=== PATIENT | male | born 1975 | race Two or more races ===

== ENCOUNTER 2020-06-14 23:22 | Emergency (ER) | payer SELFPAY ==
[~2020-06-14] VITALS: Ht 160 cm; Wt 68.1 kg
--- NOTE | 2020-06-15 00:16 | PHYS DOC ---
General Adult EDM: Chief Complaint: ABDOMINAL PAIN HPI: HPI: Patient is a 44 year old male who presents with epigastric abdominal pain for 6 months. Patient reports that this is been intermittent. He will have days where he would have it at all and other days he will have it all day. He is associated with some nausea without vomiting, no diarrhea, melena or hematochezia. He reports the pain is achy, nonradiating and intermittent. The pain he has today has been present for at least 2 or 3 days. Patient also complains of some mild dysuria without any testicular involvement including swelling or pain. Patient denied any constipation, fever, chills or sweats cough change in smell or taste. Review of Systems: Review of Systems: Constitutional: Denies fever or chills. [] Eyes: Denies change in visual acuity. [] HENT: Denies nasal congestion or sore throat. [] Respiratory: Denies cough or shortness of breath. [] Cardiovascular: Denies chest pain or edema. [] GI: See HPI. [] : See HPI [] Musculoskeletal: Denies back pain or joint pain. [] Integument: Denies rash. [] Neurologic: Denies headache, focal weakness or sensory changes. [] Endocrine: Denies polyuria or polydipsia. [] Lymphatic: Denies swollen glands. [] Psychiatric: Denies depression or anxiety. [] Heart Score: Risk Factors: Risk Factors: DM, Current or recent (<one month) smoker, HTN, HLP, family history of CAD, obesity. Risk Scores: Score 0 - 3: 2.5% MACE over next 6 weeks - Discharge Home Score 4 - 6: 20.3% MACE over next 6 weeks - Admit for Clinical Observation Score 7 - 10: 72.7% MACE over next 6 weeks - Early Invasive Strategies Allergies: Allergies: Allergies Coded Allergies Type Severity Reaction Last Updated Verified No Known Drug Allergies 06/15/20 No Physical Exam: PE: Constitutional: Well developed, well nourished, no acute distress, non-toxic appearance. [] HENT: Normocephalic, atraumatic, bilateral external ears normal, oropharynx moist, no oral exudates, nose normal. [] Eyes: PERRLA, EOMI, conjunctiva normal, no discharge. [] Neck: Normal range of motion, no tenderness, supple, no stridor. [] Cardiovascular:Heart rate regular rhythm, no murmur [] Lungs & Thorax: Bilateral breath sounds clear to auscultation [] Abdomen: Soft, positive bowel sounds, no guarding, no rebound, negative Solano sign, tenderness in the epigastrium. Nondistended [] Skin: Warm, dry, no erythema, no rash. [] Back: No tenderness, CVA tenderness on the left greater than the right but also some iliolumbar muscle tenderness. [] Extremities: No tenderness, no cyanosis, no clubbing, ROM intact, no edema. [] Neurologic: Alert and oriented X 3, normal motor function, normal sensory function, no focal deficits noted. [] Psychologic: Affect normal, judgement normal, mood normal. [] EKG: EKG: Normal sinus rhythm, heart rate 75 bpm, normal intervals, normal axis, left atrial abnormality, abnormal ECG [] Radiology/Procedures: Radiology/Procedures: [] Course & Med Decision Making: Course & Med Decision Making Pertinent Labs and Imaging studies reviewed. (See chart for details) [id number]-patient was seen and reevaluated. Patient reports that his abdominal pain is now resolved with medications rendered here in the emergency department. I discussed with him reasons to return, treatment plan and need for follow-up. [] Dragon Disclaimer: Dragmarly Disclaimer: This electronic medical record was generated, in whole or in part, using a voice recognition dictation system. Departure Departure Impression: Primary Impression: Acute gastritis without hemorrhage Qualified Codes: K29.00 - Acute gastritis without bleeding Additional Impressions: Epigastric abdominal pain Hypokalemia Disposition: HOME, SELF-CARE Condition: IMPROVED Referrals: NO PCP (PCP) Patient Instructions: Abdominal Pain, Gastritis, Adult Additional Instructions: See the list of primary care providers for follow-up Scripts Omeprazole (OMEPRAZOLE) 40 Mg Capsule.dr 40 MG PO DAILY for 30 Days, #30 CAP Take 1/2-hour before the first meal the day Prov: IFTIKHAR PÉREZ MD 06/15/20 Justicifation of Admission Dx: Justifications for Admission: Justification of Admission Dx: N/A IFTIKHAR PÉREZ MD Jun 15, 2020 00:16
[2020-06-15] MEDS ORDERED: IV NORMAL SALINE 1000ML BAG 1,000 ML IV ONE (00:30)
[2020-06-15] MEDS ORDERED: MAG HYDROX/ALUMINUM HYD/SIMETH 30 ML ORAL.SUSP PO ONE (00:30)
[2020-06-15] MEDS ORDERED: METOCLOPRAMIDE HCL 10 MG/2 ML VIAL. IVP ONE (00:30)
[2020-06-15] MEDS ORDERED: FAMOTIDINE 20 MG TABLET. PO ONE (00:30)
[2020-06-15 00:55] LABS: BASO % 0 % (0-3); EOS % 0 % (0-3); HEMOGLOBIN 10.5 g/dL (13.0-17.5); LYMPH # 2.5 x10^3/uL (1.0-4.8); LYMPH % 29 % (24-48); MEAN CORPUSCULAR HEMOGLOBIN 30 pg (25-35); MEAN CORPUSCULAR HGB CONC 36 g/dL (31-37); MEAN CORPUSCULAR VOLUME 84 fL (79-100); MONO # 0.6 x10^3/uL (0.0-1.1); MONO % 7 % (0-9); NEUT # 5.4 x10^3/uL (1.8-7.7); NEUT % 64 % (31-73); PLATELET COUNT 517 x10^3/uL (140-400); RED BLOOD COUNT 3.45 x10^6/uL (4.30-5.70); RED CELL DISTRIBUTION WIDTH 12.7 % (11.5-14.5); WHITE BLOOD COUNT 8.5 x10^3/uL (4.0-11.0)
[2020-06-15 01:03] LABS: PROTHROMBIN TIME PATIENT 11.1 SEC (11.7-14.0)
[2020-06-15 01:11] LABS: ALBUMIN 1.7 g/dL (3.4-5.0); ALBUMIN/GLOBULIN RATIO 0.3 (1.0-1.7); CALCIUM 7.9 mg/dL (8.5-10.1); CREATININE 1.2 mg/dL (0.7-1.3); GFR 66.4; TOTAL BILIRUBIN 0.2 mg/dL (0.2-1.0); TOTAL PROTEIN 6.7 g/dL (6.4-8.2)
[2020-06-15 01:17] LABS: POTASSIUM 2.9 mmol/L (3.5-5.1)
[2020-06-15 01:41] LABS: BILIRUBIN,URINE NEGATIVE (NEG); CLARITY,URINE CLEAR; COLOR,URINE YELLOW; NITRITE,URINE NEGATIVE (NEG); PH,URINE 6.5 (<5.0-8.0); PROTEIN,URINE 100 mg/dL (NEG-TRACE); UROBILINOGEN,URINE 0.2 mg/dL (0.2 mg/dL)
[2020-06-15 01:50] LABS: BACTERIA,URINE 0 /HPF (0-FEW); RBC,URINE OCC /HPF (0-2); SQUAMOUS EPITHELIAL CELL,UR FEW /LPF
[2020-06-15 01:51] LABS: HYALINE CASTS, URINE FEW /HPF
[2020-06-15] MEDS ORDERED: POTASSIUM CHLORIDE 20 MEQ TABLET.ER. PO ONE (02:00)
[2020-06-15] MEDS ORDERED: OMEP40CA45 PO (02:05)
[2020-06-15 02:07] VITALS: BP 158/97
--- NOTE | 2020-06-15 14:28 | EKG ---
[facility] [address] [place] [address] Test Date: 2020-06-15 Test Time: 01:21:53 Pat Name: SAYRA HARLEY Department: Room: Gender: M Instructional Design Manager: : 1975 Requested By: IFTIKHAR PÉREZ Order Number: [id number] Reading MD: Lefty Mchugh MD Measurements Intervals [place] Rate: 75 P: -7 MT: 148 QRS: 49 QRSD: 100 T: 34 QT: 412 QTc: 463 Interpretive Statements SINUS RHYTHM Electronically Signed On 06-20-2020 13:57:40 CDT by Lefty Mchugh MD
== END 2020-06-15 02:23 | disposition home or self-care (01) ==
LOC: ER 23:22
DX: K29.00 Acute gastritis without bleeding (principal); R10.13 Epigastric pain; E87.6 Hypokalemia; R11.0 Nausea; R30.0 Dysuria
CPT/HCPCS: 36415; 80053; 81001; 83690; 84484; 85025; 85610; 93005; 96361; 96374; 99284; J2765; J7030

== ENCOUNTER 2021-01-31 21:30 | Emergency (ER) | payer SELFPAY ==
[~2021-01-31] VITALS: Ht 165.1 cm; Wt 63.6 kg
[~2021-01-31 21:30] MED LIST: OMEP40CA45 PO
[2021-01-31 22:19] LABS: BASO # 0.1 x10^3/uL (0.0-0.2); BASO % 1 % (0-3); EOS # 0.1 x10^3/uL (0.0-0.7); EOS % 1 % (0-3); HEMATOCRIT 28.3 % (39.0-53.0); HEMOGLOBIN 9.7 g/dL (13.0-17.5); LYMPH # 1.7 x10^3/uL (1.0-4.8); LYMPH % 21 % (24-48); MEAN CORPUSCULAR HEMOGLOBIN 30 pg (25-35); MEAN CORPUSCULAR HGB CONC 34 g/dL (31-37); MEAN CORPUSCULAR VOLUME 87 fL (79-100); MONO # 0.4 x10^3/uL (0.0-1.1); MONO % 5 % (0-9); NEUT # 5.7 x10^3/uL (1.8-7.7); NEUT % 72 % (31-73); PLATELET COUNT 472 x10^3/uL (140-400); RED BLOOD COUNT 3.26 x10^6/uL (4.30-5.70); RED CELL DISTRIBUTION WIDTH 14.1 % (11.5-14.5); WHITE BLOOD COUNT 7.9 x10^3/uL (4.0-11.0)
--- NOTE | 2021-01-31 22:31 | RAD ---
Single view chest dated 01/31/2021. No comparison available. CLINICAL INDICATION: Shortness of breath. FINDINGS: Single upright portable exam. Heart and mediastinal contours within normal limits. There is some patc hy and linear opacity at both lung bases, left greater than right. No consolidation or pleural effusi on. No pneumothorax. IMPRESSION: Patchy bibasilar opacity, likely atelectasis. Electronically signed by: Kenn Bauer MD (01/31/2021 10:28 PM) [facility]URENT
[2021-01-31 22:36] LABS: ALBUMIN 1.1 g/dL (3.4-5.0); ALBUMIN/GLOBULIN RATIO 0.3 (1.0-1.7); GFR 36.6; TOTAL BILIRUBIN 0.1 mg/dL (0.2-1.0); TOTAL PROTEIN 4.9 g/dL (6.4-8.2)
[2021-01-31 22:37] LABS: POTASSIUM 2.9 mmol/L (3.5-5.1)
[2021-01-31] MEDS ORDERED: POTASSIUM BICARB 20 MEQ EFFERVESCENT TABLET. PO ONE (22:45)
[2021-01-31] MEDS ORDERED: POTASSIUM CHLORIDE 20 MEQ TABLET.ER. PO ONE (22:45)
--- NOTE | 2021-01-31 23:10 | PHYS DOC ---
Past Medical History Past Medical History: Diabetes-Type II, Renal Failure Past Surgical History: No Surgical History Smoking Status: Never Smoker Alcohol Use: None General Adult EDM: Chief Complaint: LOWER EXTREMITY SWELLING HPI: HPI: Patient is a 45 year old year old male presents for evaluation of lower extremity swelling and abnormal labs. Patient states he takes medicine for diabetes and "kidneys" States he went to a clinic and had his blood work drawn-- creatine wa 1.6 and patient was told his kidneys are failing and clinic stated they could not see him anymore. Patient states he still produces urine. States swelling in his legs 6 months. SOB on and off x 3-5 months Review of Systems: Review of Systems: Review of systems: Constitutional symptoms- No fever, no chills. Eyes- No Discharge, No Visual Loss Respiratory symptoms- positive shortness of breath, No wheezing, No Dyspnea on Exertion Cardiovascular Systems; positive chest pain, No Palpitations, No syncope Gastrointestinal symptoms: NO abdominal pain, no nausea, no vomiting or diarrhea. Genitourinary symptoms: No dysuria. Musculoskeletal symptoms: No back pain No extremity pain. extremity swelling NEUROLOGICAL Symptoms: No headache, no generalized weakness; No focal Weakness Heart Score: C/O Chest Pain: N/A Risk Factors: Risk Factors: DM, Current or recent (<one month) smoker, HTN, HLP, family history of CAD, obesity. Risk Scores: Score 0 - 3: 2.5% MACE over next 6 weeks - Discharge Home Score 4 - 6: 20.3% MACE over next 6 weeks - Admit for Clinical Observation Score 7 - 10: 72.7% MACE over next 6 weeks - Early Invasive Strategies Current Medications: Current Medications Medications (Trade) Dose Ordered Sig/[facility] Start Time Stop Time Status Last Admin Dose Admin Potassium Bicarbonate (Potassium Effervescent Tablet) 40 meq 1X ONCE 01/31/21 22:45 01/31/21 22:46 DC 01/31/21 22:56 40 MEQ Potassium Chloride (Klor-Con) 40 meq 1X ONCE 01/31/21 22:45 01/31/21 22:46 DC 01/31/21 22:56 40 MEQ Allergies: Allergies: Allergies Coded Allergies Type Severity Reaction Last Updated Verified No Known Drug Allergies 06/15/20 No Physical Exam: PE: Constitutional: Well developed, well nourished, no acute distress, non-toxic yash earance. [] HENT: Normocephalic, atraumatic, bilateral external ears normal, oropharynx moist, no oral exudates, nose normal. [] Eyes: PERRLA, EOMI, conjunctiva normal, no discharge. [] Neck: Normal range of motion, no tenderness, supple, no stridor. [] Cardiovascular:Heart rate regular rhythm, no murmur [] Lungs & Thorax: Bilateral breath sounds clear to auscultation [] Abdomen: Bowel sounds normal, soft, no tenderness, no masses, no pulsatile masses. [] Skin: Warm, dry, no erythema, no rash. [] Back: No tenderness, no CVA tenderness. [] Extremities: No tenderness, no cyanosis, no clubbing, ROM intact, edema bilateral lower extremities [] Neurologic: Alert and oriented X 3, normal motor function, normal sensory function, no focal deficits noted. [] Psychologic: Affect normal, judgement normal, mood normal. [] Current Patient Data: Labs: Laboratory Tests Test 01/31/21 22:09 White Blood Count 7.9 x10^3/uL (4.0-11.0) Red Blood Count 3.26 x10^6/uL (4.30-5.70) L Hemoglobin 9.7 g/dL (13.0-17.5) L Hematocrit 28.3 % (39.0-53.0) L Mean Corpuscular Volume 87 fL (79-100) Mean Corpuscular Hemoglobin 30 pg (25-35) Mean Corpuscular Hemoglobin Concent 34 g/dL (31-37) Red Cell Distribution Width 14.1 % (11.5-14.5) Platelet Count 472 x10^3/uL (140-400) H Neutrophils (%) (Auto) 72 % (31-73) Lymphocytes (%) (Auto) 21 % (24-48) L Monocytes (%) (Auto) 5 % (0-9) Eosinophils (%) (Auto) 1 % (0-3) Basophils (%) (Auto) 1 % (0-3) Neutrophils # (Auto) 5.7 x10^3/uL (1.8-7.7) Lymphocytes # (Auto) 1.7 x10^3/uL (1.0-4.8) Monocytes # (Auto) 0.4 x10^3/uL (0.0-1.1) Eosinophils # (Auto) 0.1 x10^3/uL (0.0-0.7) Basophils # (Auto) 0.1 x10^3/uL (0.0-0.2) Sodium Level 134 mmol/L (136-145) L Potassium Level 2.9 mmol/L (3.5-5.1) *L Chloride Level 102 mmol/L (98-107) Carbon Dioxide Level 28 mmol/L (21-32) Anion Gap 4 (6-14) L Blood Urea Nitrogen 30 mg/dL (8-26) H Creatinine 2.0 mg/dL (0.7-1.3) H Estimated GFR (Cockcroft-Gault) 36.6 BUN/Creatinine Ratio 15 (6-20) Glucose Level 484 mg/dL (70-99) H Calcium Level 7.0 mg/dL (8.5-10.1) L Total Bilirubin 0.1 mg/dL (0.2-1.0) L Aspartate Amino Transferase (AST) 23 U/L (15-37) Alanine Aminotransferase (ALT) 21 U/L (16-63) Alkaline Phosphatase 116 U/L (46-116) Troponin I Quantitative < 0.017 ng/mL (0.000-0.055) LD-Jxb-V-Type Natriuretic Peptide 670 pg/mL (0-124) H Total Protein 4.9 g/dL (6.4-8.2) L Albumin 1.1 g/dL (3.4-5.0) L Albumin/Globulin Ratio 0.3 (1.0-1.7) L Laboratory Tests 01/31/21 22:09 Laboratory Tests 01/31/21 22:09 Vital Signs: Vital Signs Date Time Temp Pulse Resp B/P (MAP) Pulse Ox O2 Delivery O2 Flow Rate FiO2 01/31/21 21:40 98.0 85 16 195/113 (140) 98 Room Air 98.0 EKG: EKG: [] Radiology/Procedures: Radiology/Procedures: [] Impression: Single upright portable exam. Heart and mediastinal contours within normal limits. There is some patchy and linear opacity at both lung bases, left greater than right. No consolidation or pleural effusion. No pneumothorax. IMPRESSION: Patchy bibasilar opacity, likely atelectasis. Electronically signed by: Kenn Bauer MD (01/31/2021 10:28 PM) [facility] Course & Med Decision Making: Course & Med Decision Making Pertinent Labs and Imaging studies reviewed. (See chart for details) [] Patient is potassium found to be low. Patient was treated with p.o. tablets and liquid. Patient's creatinine was noted to be elevated but patient does still produce urine. Patient in no acute distress. Patient given referral to [facility]. Tyra Disclaimer: Tyra Disclaimer: This electronic medical record was generated, in whole or in part, using a voice recognition dictation system. Departure Departure Impression: Primary Impression: Acute renal failure Additional Impressions: Hypokalemia Swelling of lower extremity Disposition: 01 DC HOME SELF CARE/HOMELESS Condition: STABLE Referrals: NO PCP (PCP) Patient Instructions: Edema Scripts Furosemide (LASIX) 20 Mg Tablet 1 TAB PO DAILY for 30 Days, #14 TAB 0 Refills Prov: ENA WONG DO 01/31/21 Potassium Chloride (POTASSIUM CHLORIDE ) 20 Meq Tablet.er 20 MEQ PO DAILY for SUPPLEMENT, #20 TAB.SR Prov: ENA WONG DO 01/31/21 ENA WONG DO Jan 31, 2021 23:10
[2021-01-31] MEDS ORDERED: FURO-69 PO (23:39)
[2021-01-31] MEDS ORDERED: POTA20TA4 PO (23:39)
[2021-01-31 23:51] VITALS: BP 184/114
== END 2021-01-31 23:59 | disposition home or self-care (01) ==
LOC: ER 21:30
DX: E11.22 Type 2 diabetes mellitus with diabetic chronic kidney disease (principal); N17.9 Acute kidney failure, unspecified; N18.9 Chronic kidney disease, unspecified; E87.6 Hypokalemia; R22.43 Localized swelling, mass and lump, lower limb, bilateral
CPT/HCPCS: 36415; 71045; 80053; 83880; 84484; 85025; 99285-25